=== PATIENT | female | born 1970 | race Caucasian/White ===

== ENCOUNTER 2016-11-26 08:04 | Emergency (ER) | payer SELFPAY ==
[2016-11-26 08:14] VITALS: BP 125/79
--- NOTE | 2016-11-26 08:28 | ERNOTE ---
Integumentary HPI - Narrative Date of Service: 11/26/16 - General Presenting Symptoms: rash Time Seen by Provider: 11/26/16 08:20 Source: patient Exam Limitations: no limitations - 46-year-old white female with a history of - Immun/Allergies/Home Medications Immunizations: IMMUNIZATION HX Immunizations Up to Date Yes History of Influenza Vaccine No Hx Pneumococcal Vaccination No Allergies/Adverse Reactions: Allergies Allergy/AdvReac Type Severity Reaction Status Date / Time Penicillins Allergy Verified 11/26/16 08:14 Home Medications: HOME MEDICATIONS ALPRAZolam [Xanax] 0.5 mg PO BID PRN 06/26/14 [Last Taken Unknown] Levothyroxine Sodium [Synthroid] 50 mcg PO DAILY 06/26/14 [Last Taken Unknown] Meloxicam [Mobic] 7.5 mg PO BID 06/26/14 [Last Taken Unknown] Naproxen [Naprosyn] 500 mg PO BID PRN #60 tab 04/05/16 [Last Taken Unknown] predniSONE [Prednisone] 3 tab PO DAILY #9 tab 04/05/16 [Last Taken Unknown] - History of Present Illness Narrative: 46-year-old white female with a history of a rheumatologic disorder presents with bruising on bilateral forearms. Yesterday she noticed the development of about a dozen Circulair ecchymotic-like lesions that were painful and tender on her bilateral medial forearms. This is the area forearms that would come in contact with objects from general moving moving. She however denies injury. She has no other bruising. She has no systemic signs of illness. No myalgias or arthralgias. No fever or chills. No swelling. Review of Systems - Review of Systems Constitutional: Present: no symptoms reported. Absent: fever, chills, diaphoresis, weakness, malaise, weight loss EYE: Present: no symptoms reported ENT: Present: no symptoms reported Respiratory: Present: no symptoms reported Cardiology: Present: no symptoms reported Gastrointestinal/Abdominal: Present: no symptoms reported Genitourinary: Present: no symptoms reported Musculoskeletal: Present: no symptoms reported, See HPI. Absent: back pain, muscle pain, muscle stiffness, joint pain, joint swelling Skin: Present: See HPI, lesions Neurological: Present: no symptoms reported Endocrine: Present: no symptoms reported Hematologic/Lymphatic: Present: no symptoms reported. Absent: easy bruising, easy bleeding, swollen glands All Other Systems: All systems neg except as marked - Patient's Past Medical History Patient History - Medical: Anxiety, Depression, Hypothyroidism, Other Patient History - Cardiac/Respiratory: No pertinent hx Patient History - Cancer: No Hx of Cancer Patient History - Surgical Procedures: Appendectomy, Tubal Ligation Patient History - Other: None LMP (females 10-50): last week - Social History Living Situations: spouse Abuse History: No History of abuse Psych History: Hx of Anxiety, Hx of Depression Smoking Status: Current every day smoker Have you smoked in the past 12 months: Yes Do you dip or chew tobacco: No Alcohol Use: occasionally Drug Use: none - Immunizations Immunizations Up to Date: Yes Hx Pneumococcal Vaccination: No History of Influenza Vaccine: No Physical Exam - Physical Exam General Appearance: Present: wd/wn, alert, no apparent distress Head Exam: Present: normal inspection, no evidence of injury Eye Exam: Normal inspection: bilateral, EOMI: bilateral Ears, Nose, Throat: Present: normal ENT inspection Neck: Present: normal inspection, nontender Respiratory: Present: no respiratory distress, normal breath sounds, no accessory muscle use, chest nontender, lungs clear Cardiovascular/Chest: Present: regular rate, rhythm, no murmur, normal peripheral pulses Gastrointestinal/Abdominal: Present: normal bowel sounds, nontender, nondistended, soft, guarding Back Exam: Present: normal inspection, normal range of motion, no vertebral tenderness Extremity Exam: Present: normal except -, normal range of motion, no edema, other - nearly 1 dozen 2 cm circular ecchymotic like lesions on the medial bilateral forearms which are brown in color Neurological Exam: Present: alert, oriented, normal mood/affect, no motor/ sensory deficits Skin Exam: Present: normal color ED Progress - Vital Signs Patient's Vital Signs:: I have reviewed the patient's vital signs. Vital Signs: Vital Signs 11/26/16 08:07 Temperature 36.8 C Pulse Rate 99 Respiratory 15 Rate Blood Pressure 125/79 O2 Sat by Pulse 97 Oximetry - Progress/Reassessment Chief Complaint: Rash Plan - Plan Plan: I have advised patient to call her team facilitator at the [facility] and discussed these new findings. Initial labs are unremarkable. I advised patient this could be medication related or related to her rheumatologic disease. She verbalized understanding. If she develops any systemic signs of illness such as fevers chills swelling nausea vomiting arthralgias myalgias over the weekend she should return to the ED. She verbalized understanding Sedimentation rate and CRP are pending. Patient was unable to give me an accurate medication list. We will try to obtain this. She was unable to give me the exact name of her rheumatologic disease. Old records are not available to me. Departure Clinical Impression: Multiple ecchymoses of both upper arms - Departure Disposition: Home self-care Condition: Stable Additional Instructions: Return to the emergency department if any fever, chills, nausea vomiting diarrhea, worsening bruising over this weekend. Otherwise follow-up with rheumatologic physician or primary care physician on Monday or Monday. Referrals: Kelsi Mcmahon MD [Primary Care Provider] -
[2016-11-26 08:41] LABS: Hematocrit 34.2 % (37.0-47.0); Hemoglobin 11.2 gm/dL (12.5-16.0); Mean Cell Volume 85.3 fl (78-100); Mean Corpuscular Hemoglobin 27.9 pg (27-31); Mean Corpuscular Hgb Conc 32.7 g/dl (32-36); Mean Platelet Volume 9.3 fl (6.0-9.5); Neutrophil # 6.7 K/mm3 (1.3-6.0); Neutrophil % 87.5 % (42-75.0); Platelet Count 378 K/mm3 (150-450); Red Blood Count 4.01 M/mm3 (4.2-5.4); Red Cell Distribution Width 14.3 % (11.5-14.0); White Blood Count 7.6 K/mm3 (4.0-10.5)
[2016-11-26 08:49] LABS: Prothrombin Time (Patient) 10.1 Seconds (9.4-11.4)
[2016-11-26 08:50] LABS: INR 0.97 INR (0.90-1.10); Partial Thrombolplastin Time 25.7 Seconds (24-32)
[2016-11-26 08:52] LABS: ALT 21 U/L (19-67); AST 17 U/L (0-48); Albumin * 3.8 gm/dl (3.4-5.0); Alkaline Phosphatase * 74 U/L (50-170); Anion Gap 15.3 mmol/L (6.8-13.8); BUN/Creatinine Ratio 18.4 (9.0-21.6); Bilirubin, Total 0.4 mg/dL (0.0-1.1); Blood Urea Nitrogen 16 mg/dL (3-23); Ca. Corrected For Albumin 8.2 mg/dL (8.4-10.2); Calcium * 8.4 mg/dL (7.9-10.9); Carbon Dioxide 25.1 mmol/L (24-32.6); Chloride 105 mmol/L (97-106); Glucose * 131 mg/dL (70-110); Potassium 4.4 mmol/L (3.4-4.6); Sodium 141 mmol/L (132-142)
== END 2016-11-26 09:21 | disposition home or self-care (01) ==
LOC: ER 08:04
DX: R58 Hemorrhage, not elsewhere classified (principal); F41.8 Other specified anxiety disorders; E03.9 Hypothyroidism, unspecified; Z72.0 Tobacco use